=== PATIENT | female | born 1990 | race Asian ===

== ENCOUNTER 2018-09-10 04:24 | Inpatient (IN) | payer BC, MEDICAID ==
--- NOTE | 2018-09-10 10:20 | PN ---
Progress Note - Progress Note Date of Service: 09/10/18 Note: S: Pt OOB ambulating. Reports feeling contractions every 5-6 minutes. Describes as "painful." Reports +FM, bloody show. Denies LOF. O: FHT: baseline 140, +accels, no decels, moderate variability Ctx: 5+6 minutes, mild-moderate VE: 3/90/0, post, vtx A: VSS Category I FHT, reassuring Regular contractions VE: unchanged Plan: Recheck cervix in 2 hours Encouraged pt to ambulate, and change position frequently If no change in cervix in 2 hours, discussed with pt re: send home vs. augmentation of labor. Undecided at this point.
[2018-09-10] MEDS ORDERED: Lactated Ringers 1000 ML Bag* 1,000 ML IV ONE (12:49)
[2018-09-10] MEDS ORDERED: Buffered Lidocaine 1% SYRIN* 1 ML/SYRINGE INTRADERM ONE (12:49)
[2018-09-10] MEDS ORDERED: Lactated Ringers 1000 ML Bag* 1,000 ML IV SCH ×2 (13:00→22:00)
--- NOTE | 2018-09-10 13:08 | HP ---
General Information - Reason for Visit IUP@39+3 in active labor - General Information Maternal Age: 28 Grav: 1 Para: 0 SAB: 0 IEA: 0 Estimated Due Date: 09/15/18 Determined By: LMP Maternal Blood Type and Rh: A Positive - Results this Serology/RPR Result: Non-Reactive Rubella Result: Immune HBsAg Result: Negative HIV Result: Negative GBS Culture Result: Negative Past Medical History Pertinent Past Medical History: Non-Contributory Past Medical History Comment: none Pertinent Past Surgical History: None Pertinent Family History: Non-Contributory - Antepartal Records Antepartal Records: Reviewed, Complicated by: - low-lying placenta at 20 weeks, resolved 08/02/2018 Review of Systems Constitutional: Uncomfortable CV Complaint: No Respiratory: Shortness of Breath: No Gastrointestinal: No Nausea/Vomiting, Normal Bowel Movement Genitourinary: No Dysuria, No Leaking Fluid, Spotting Musculoskeletal: Contractions Neurological: No Headache, No Visual Changes Movement: Normal Exam Allergies/Adverse Reactions: Allergies No Known Allergies Allergy (Verified 09/10/18 04:53) temp 97.9, RR 18, BP 124/85, HR 102 - Measurements Height: 5 ft 2 in Weight: 133 lb Weight in lbs: [phone] Body Mass Index (BMI): 24.3 Pre- Weight: 107 lb Weight Gained This : 26 lbs and 0 ozs - Exam Breast: Breast Exam Deferred CVA: No CVA Tenderness Extremities: No Edema Heart: Normal Rhythm/Heart Sounds HEENT: No Significant Findings Lungs: Clear Bilaterally Rectal: Rectal Exam Deferred Reflexes: DTR 2+ Thyroid: No Thyromegaly - Abdominal Exam Abdomen Exam: Non-Tender, Fundal Height Consistent with Dates - Ultrasound/Biophysical Profile Ultrasound Status: Not Done Targeted Exam Findings Cervical Exam: 6cm Effacement: 100% Station: 0 Presenting Part: Vertex Membrane Status: Intact Bleeding/Discharge: Bloody Show EFM Findings - External Monitor Findings Baseline Heart Rate: 140 External Monitor Findings: Accelerations Present, No Pattern of Variable or Late Decelerations, Variability Moderate Contractions: Irregular, Regular, Moderate, 45-90 Seconds - Contractions every Assessment/Plan - Assessment IUP@39+3 in active labor, GBS negative, membranes intact - Plan Plan: Admit - Anticipate Vaginal Delivery Plan Comment: Plan: admit to L&D pt plans epidural - can have epidural as needed for pain anticipate progression to - Date/Time of Admission Date of Admission: 09/10/18 Time of Admission: 12:50
--- NOTE | 2018-09-10 16:10 | PN ---
Progress Note - Progress Note Date of Service: 09/10/18 Note: S: Pt OOB ambulating. States contractions are becoming more painful. Has not been timing. Reports sensation of having to poop. Declines need for pain medication at this time. O: BP 129/79, HR 100 FHT: 140 moderate variability, +accels, no decels Ctx: present, 2-3 mins VE: 6.5/100/0 A: IUP@39+3 in active labor VSS Regular contractions, coping well VE: small change from previous exam Discussed risk vs. benefits of AROM to augment labor. Pt and give full consent for CNM to attempt AROM. Plan: Attempted AROM, small amount of clear fluid leaking from introitus EFM/toco following attempted AROM Pain meds Anticipate progression to
--- NOTE | 2018-09-10 18:43 | PN ---
Progress Note - Progress Note Date of Service: 09/10/18 Note: S: Pt resting in bed, eyes closed between contractions. O: VS: 130/83, RR 17, HR 98, temp 99.1 VE: 9100/0, fluid: thin mec Contractions: irregular FHR: IA 145s, listened through contraction A: Transitioning FHR, reassuring Contractions, strong P: Special care nursery alerted for thin mec VE PRN Labor support/comfort measures provided Anticipate progression to
[2018-09-10] MEDS ORDERED: OXYTOCIN* 10 UNITS/ML 1 ML VIAL ONE (21:15)
[2018-09-10] MEDS ORDERED: Glycerin ADULT SUPP PR PRN (21:23)
[2018-09-10] MEDS ORDERED: Acetaminophen TAB* 325 MG PO PRN (21:23)
[2018-09-10] MEDS ORDERED: Witch Hazel PAD* JAR TOPICAL PRN (21:23)
[2018-09-10] MEDS ORDERED: Dibucaine 1% 28.35 GM TUBE PR PRN (21:23)
[2018-09-10] MEDS ORDERED: OXYTOCIN* 10 UNITS/ML 1 ML VIAL IM ONE (21:23)
--- NOTE | 2018-09-10 21:32 | PROCNOTE ---
[facility] OB: Delivery Note - Perineum Perineal Injury: 2nd Degree Perineal Repair: By Delivering Practioner - Repaired in the usual fashion with 3 -0 rapide under local anesthesia. Tissue well-approximated. Hemeostasis achieved. - Events Delivery Events of Note: Post- Bleeding - Meds Given - Active management of 3rd stage of labor with 10 units of pit IM in left thigh given by furnace filler Events of Note Comment: Meconium noted, nuchal arm - Additional Delivery Notes Additional Delivery Notes: Pt admitted at 39+3 in active labor. AROM to augment labor with thin meconium. Pt progressed to complete/complete. Length of labor was 9 hours and 27 minutes, pt pushed 52 minutes. Category I tracing throughout labor. Strong maternal pushing effort led to of a viable baby girl. OA to SHIRLENE with nuchal arm noted, shoulders followed easily. vigorous with spontaneous cry, heartbeat >110 BPM. Delivered to maternal abdomen. Cord clamped x2 and cut by FOB. Spontaneous delivery of intact placenta, membranes complete. Fundus firm to massage with IV pit given for active management of third stage of labor. Careful inspection of the perineum revealed second degree midline laceration, repaired in the usual fashion over a second degree perineal laceration. Anatomy restored, good hemostasis achieved. EBL 300 mL. At time of note, mother and infant in stable condition, planning to breastfeed.
[2018-09-10] MEDS: Ibuprofen TAB* 600 MG PO PRN (22:11)
[2018-09-10] MEDS ORDERED: Ammonia Inhalant* 1 EA AMP ONE (22:30)
[2018-09-11] MEDS: Ibuprofen TAB* 600 MG PO PRN ×3 (03:48→23:22)
[2018-09-11 06:08] LABS: Hematocrit 34 % (35-47); Hemoglobin 11.1 g/dl (12.0-16.0); Mean Corpuscular HGB Conc 33 g/dl (31-36); Mean Corpuscular Hemoglobin 29 pg (27-31); Mean Corpuscular Volume 88 fL (80-97); Mean Platelet Volume 8.8 fL (7.4-10.4); Platelet Count 216 10^3/ul (150-450); Red Blood Count 3.82 10^6/ul (4.00-5.40); Red Cell Distribution Width 14 % (10.5-15); White Blood Count 21.6 10^3/ul (3.5-10.8)
[2018-09-11 07:02] LABS: ABS Basophils 0.1 10^3/ul (0-0.2); ABS Eosinophils 0 10^3/ul (0-0.6); ABS Monocytes 1.4 10^3/ul (0-0.8); ABS Neutrophils 17.2 10^3/ul (1.5-7.7); ABS Nucleated RBC 0 10^3/ul; Eosinophil % 0.1 %; Lymphocyte % 13.8 %; Nucleated Red Blood Cells % 0
[2018-09-11] MEDS: Docusate CAP* 100 MG PO SCH ×3 (08:42→20:45)
[2018-09-11] MEDS: Ferrous Gluconate TAB* 324 MG TAB PO SCH ×2 (10:26→21:13)
[2018-09-11] MEDS: Simethicone TAB* 80 MG TAB.CHEW PO SCH ×2 (10:27→14:30)
--- NOTE | 2018-09-11 17:20 | PTEDU ---
Patient Name: ASHUTOSH BRANDON ASHUTOSH BRANDON selected video: Follow Me Mum: The [facility] to Successful to view on 09/11/2018 at 5:19:[address] [id number]
[2018-09-12] MEDS: Ibuprofen TAB* 600 MG PO PRN (06:29)
[2018-09-12 07:54] VITALS: BP 99/58
[2018-09-12] MEDS: Docusate CAP* 100 MG PO SCH (08:00)
[2018-09-12 09:18] LABS: Hematocrit 28 % (35-47); Hemoglobin 9.5 g/dl (12.0-16.0)
[2018-09-12] MEDS: Ferrous Gluconate TAB* 324 MG TAB PO SCH (11:22)
== END 2018-09-12 13:21 | disposition home or self-care (01) | DRG 560 ==
LOC: MCHOBOUT 04:24 → MCHOB 12:49
PROVIDERS: ADMIT Midwife; ATTEND Advanced Practice Midwife
PROC: 10E0XZZ Delivery of Products of Conception, External Approach (ICD-10-PCS; principal; 2018-09-10)
PROC: 10907ZC Drainage of Amniotic Fluid, Therapeutic from Products of Conception, Via Natural or Artificial Opening (ICD-10-PCS; 2018-09-10)
PROC: 0KQM0ZZ Repair Perineum Muscle, Open Approach (ICD-10-PCS; 2018-09-10)
DX: O77.0 Labor and delivery complicated by meconium in amniotic fluid (principal); O72.0 Third-stage hemorrhage; Z37.0 Single live birth; O70.1 Second degree perineal laceration during delivery; Z3A.39 39 weeks gestation of pregnancy
CPT/HCPCS: 36415; 85014; 85018; 85025; A9270-GY; J2590